=== PATIENT | male | born 1980 | race Caucasian/White ===

== ENCOUNTER 2019-01-03 15:57 | Emergency (ER) | payer SELFPAY ==
[~2019-01-03] VITALS: Ht 172.7 cm; Wt 55.0 kg
[2019-01-03 18:16] VITALS: BP 97/64
== END 2019-01-03 18:46 | disposition left against medical advice (07) ==
LOC: ER 15:57
DX: Z53.21 Procedure and treatment not carried out due to patient leaving prior to being seen by health care provider (principal)